=== PATIENT | male | born 1935 | race Asian ===

== ENCOUNTER 2020-07-13 09:35 | Emergency (ER) | payer OTHER, MEDICAID ==
[~2020-07-13] VITALS: Ht 165.1 cm; Wt 81.6 kg
[~2020-07-13 09:35] MED LIST: ATORVASTATIN CA20 M1 PO; COLACE 2-IN-11 EACH PO; DECADRON6 MG PO; GABAPENTIN300 M4 PO; GLIPIZIDE XL5 M2 PO; GLUMETZA500 MG PO; INCRUSE EL62.5 MCG/A IH; INTRINSI B12-F1 EACH PO; MONTELUKAST SOD10 M1 PO; MUCINEX600 MG PO; MULTIVITAMIN1 SGL PO; PRILOSEC OTC20 M1 PO; ROBDML PO; VENTOLIN H0.09 MG/A1 IH; ZESTRIL5 MG PO
[2020-07-13 09:43] VITALS: Ht 165.1 cm; Wt 81.6 kg
[2020-07-13 10:42] LABS: BASOPHIL % 1.3 % (0.2-1.5); PLATELET COUNT 344 x10^3mcL (152-348)
[2020-07-13 10:43] LABS: RED CELL DISTRIBUTION WIDTH 15.5 % (12.1-16.2)
[2020-07-13 10:52] LABS: CALCIUM 8.2 mg/dL (8.5-10.1); CARBON DIOXIDE 23.7 mmol/L (21-32); CHLORIDE SERUM 108 mmol/L (98-107); CREATININE SERUM 2.7 mg/dL (0.7-1.3); GLUCOSE SERUM 131 mg/dL (74-106); POTASSIUM SERUM 5.3 mmol/L (3.5-5.1); SODIUM SERUM 142 mmol/L (136-145)
[2020-07-13 10:57] LABS: ALKALINE PHOSPHATASE 43 U/L (46-116); ALT/SGPT 25 U/L (16-63); AST/SGOT 23 U/L (15-37); BILIRUBIN TOTAL 0.3 mg/dL (0.20-1.00); LIPASE 234 IU/L (73-393)
[2020-07-13 11:05] LABS: ALBUMIN 2.5 g/dL (3.4-5.0); TOTAL PROTEIN, SERUM 6.1 g/dL (6.4-8.2)
[2020-07-13 11:30] VITALS: BP 148/98
[2020-07-13 12:20] LABS: microscopic required? NO
[2020-07-13 12:39] LABS: UA SPECIFIC GRAVITY 1.015 (1.005-1.035); urine erythrocyte NEGATIVE (NEGATIVE)
[2020-07-15] MEDS ORDERED: TOPCARE OMEPRAZ20 MG PO (13:16)
== END 2020-07-13 13:33 | disposition home or self-care (01) ==
LOC: ED 09:35
PROVIDERS: Emergency Medicine
DX: N17.9 Acute kidney failure, unspecified (principal); E86.0 Dehydration; K29.80 Duodenitis without bleeding; E11.22 Type 2 diabetes mellitus with diabetic chronic kidney disease; I12.9 Hypertensive chronic kidney disease with stage 1 through stage 4 chronic kidney disease, or unspecified chronic kidney disease; N18.9 Chronic kidney disease, unspecified
CPT/HCPCS: J2405

== ENCOUNTER 2020-08-09 08:46 | Emergency (ER) | payer OTHER ==
[~2020-08-09] VITALS: Ht 165.1 cm; Wt 74.8 kg
[~2020-08-09 08:46] MED LIST changes: +TOPCARE OMEPRAZ20 MG PO
[2020-08-09 08:54] VITALS: Ht 165.1 cm; Wt 74.8 kg
[2020-08-09 10:29] VITALS: BP 130/53
== END 2020-08-09 10:29 | disposition home or self-care (01) ==
LOC: ED 08:46
DX: L72.9 Follicular cyst of the skin and subcutaneous tissue, unspecified (principal); L03.211 Cellulitis of face; F17.210 Nicotine dependence, cigarettes, uncomplicated; I10 Essential (primary) hypertension; E11.9 Type 2 diabetes mellitus without complications; E78.00 Pure hypercholesterolemia, unspecified; R05 Cough
CPT/HCPCS: 90715; J2001